=== PATIENT | male | born 1990 | race American Indian/Alaskan Native ===

== ENCOUNTER 2021-07-02 14:58 | Emergency (ER) | payer OTHER ==
[2021-07-02 19:53] VITALS: BP 141/79
[2021-07-02] MEDS ORDERED: dexAMETHasone 20 MG/5 ML VIAL IM ONE (20:37)
[2021-07-02] MEDS ORDERED: KETOROLAC 60 MG/2 ML INJ IM ONE (20:37)
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
== END 2021-07-02 22:13 | disposition home or self-care (01) ==
LOC: ED 14:58
DX: S39.012A Strain of muscle, fascia and tendon of lower back, initial encounter (principal); K59.00 Constipation, unspecified; X58.XXXA Exposure to other specified factors, initial encounter; Y93.89 Activity, other specified; Y92.89 Other specified places as the place of occurrence of the external cause; Y99.8 Other external cause status
CPT/HCPCS: 72100; 96372; 99283; J1100; J1885